=== PATIENT | female | born 1960 | race African-American/Black ===

== ENCOUNTER 2018-07-05 09:06 | Emergency (ER) | payer OTHER, MEDICAID ==
[~2018-07-05] VITALS: Ht 162.6 cm; Wt 87.0 kg
[2018-07-05] MEDS ORDERED: HYDROCODONE/ACETAMINOPHEN 5/325MG TABLET PO STA (11:08)
[2018-07-05] MEDS ORDERED: ONDANSETRON 4MG ODT PO STA (12:37)
[2018-07-05] MEDS ORDERED: KETOROLAC 60MG/2ML VIAL IM STA (12:42)
[2018-07-05 12:53] VITALS: BP 161/66
== END 2018-07-05 12:58 | disposition home or self-care (01) ==
LOC: ER 09:47
DX: S52.501A Unspecified fracture of the lower end of right radius, initial encounter for closed fracture (principal); S16.1XXA Strain of muscle, fascia and tendon at neck level, initial encounter; S39.012A Strain of muscle, fascia and tendon of lower back, initial encounter; M79.601 Pain in right arm; V49.49XA Driver injured in collision with other motor vehicles in traffic accident, initial encounter; Y93.89 Activity, other specified; Y92.410 Unspecified street and highway as the place of occurrence of the external cause; R03.0 Elevated blood-pressure reading, without diagnosis of hypertension
CPT/HCPCS: 29125; 70450; 72100; 72125; 73090; 73110; 96372; 99284; J1885; Q0162

== ENCOUNTER 2018-11-28 18:31 | Emergency (ER) | payer OTHER, MEDICAID ==
[~2018-11-28] VITALS: Ht 167.6 cm; Wt 88.0 kg
[2018-11-28] MEDS ORDERED: ACETAMINOPHEN WITH CODEINE 300/30MG TABLET PO ONE (19:30)
[2018-11-28 21:33] VITALS: BP 128/74
== END 2018-11-28 22:26 | disposition home or self-care (01) ==
LOC: ER 18:31
DX: R51 Headache (principal); R04.0 Epistaxis; I10 Essential (primary) hypertension; F17.200 Nicotine dependence, unspecified, uncomplicated; Z86.73 Personal history of transient ischemic attack (TIA), and cerebral infarction without residual deficits; Z90.49 Acquired absence of other specified parts of digestive tract
CPT/HCPCS: 99284